=== PATIENT | male | born 1990 | race Caucasian/White ===

== ENCOUNTER 2017-11-09 11:58 | Emergency (ER) | payer OTHER ==
[2017-11-09] MEDS ORDERED: TETRACAINE HCL 0.5% OPH SOLN 2 ML OS ONE (12:57)
[2017-11-09] MEDS ORDERED: POLYMYXIN B SULFATE/TMP OPH SOLN (10 ML/ER DISP) OS PRN (13:53)
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
[2017-11-09 14:18] VITALS: BP 135/95
== END 2017-11-09 14:18 | disposition home or self-care (01) ==
LOC: ER 11:58
DX: S05.02XA Injury of conjunctiva and corneal abrasion without foreign body, left eye, initial encounter (principal); H57.12 Ocular pain, left eye; M79.652 Pain in left thigh; W22.8XXA Striking against or struck by other objects, initial encounter; F17.200 Nicotine dependence, unspecified, uncomplicated
CPT/HCPCS: 99283; J3490